=== PATIENT | female | born 1995 | race Caucasian/White ===

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

== ENCOUNTER 2017-02-25 17:15 | Emergency (ER) | payer OTHER ==
[2017-02-25 17:19] VITALS: BP 138/93; PULSE 93; TEMP 98.4; BMI 32.0
[2017-02-25] MEDS ORDERED: KETOROLAC TROMETHAMINE 60 MG/2 ML VIAL IM ONE (18:03)
[2017-02-25] MEDS ORDERED: KETOROLAC TROMETHAMINE 60 MG/2 ML VIAL ONE (18:06)
--- NOTE | 2017-02-25 18:12 | PDOC ---
History of Present Illness - General Chief Complaint: Pain, Acute Stated Complaint: ARM PAIN Time Seen by Provider: 02/25/17 17:58 History Source: Patient Exam Limitations: No Limitations - History of Present Illness Initial Comments: 02/25/17 18:06 21 yr female asthma, anxiety history c/o 2 weeks pain in right shoulder upper arm and tremors in right hand when holding something heavy. Pt denies trauma. Pt has no fever or chills no shortness of breath or chest pain no headache. pt denies drug, ETOH or tobacco use. 02/25/17 18:08 Occurred: reports: other (2 weeks ) Method of Injury: reports: unknown Past History - Past Medical History Allergies/Adverse Reactions: Allergies Allergy/AdvReac Type Severity Reaction Status Date / Time mushroom Allergy Verified 02/25/17 17:18 Home Medications: Ambulatory Orders Albuterol Sulfate Inhaler - [Ventolin HFA Inhaler -] 1 - 2 inh PO Q4H PRN #1 inhaler 10/28/16 Cyclobenzaprine HCl [Flexeril 10 mg] 5 mg PO TID PRN #12 tablet 02/25/17 Naproxen [Naprosyn -] 500 mg PO BID PRN #14 tablet 02/25/17 Asthma: Yes Psychiatric Problems: Yes (anxeity) - Immunization History Immunization Up to Date: Yes - Psycho/Social/Smoking Cessation Hx Anxiety: No Suicidal Ideation: No Smoking Status: No Smoking History: Unknown if ever smoked Have you smoked in the past 12 months: No Number of Cigarettes Smoked Daily: 0 Hx Alcohol Use: No Drug/Substance Use Hx: No Substance Use Type: None Review of Systems - Review of Systems Able to Perform ROS?: Yes Is the patient limited Urdu proficient: No Constitutional: No: Symptoms Reported HEENTM: No: Symptoms Reported Respiratory: No: Symptoms reported Cardiac (ROS): No: Symptoms Reported ABD/GI: No: Symptoms Reported : No: Symptoms Reported Musculoskeletal: Yes: See HPI *Physical Exam - Vital Signs Last Vital Signs Temp Pulse Resp BP Pulse Ox 98.4 F 93 H 18 138/93 99 02/25/17 17:18 02/25/17 17:18 02/25/17 17:18 02/25/17 17:18 02/25/17 17:18 - Physical Exam General Appearance: Yes: Nourished, Appropriately Dressed HEENT: positive: EOMI, CARMEN, Normal ENT Inspection, TMs Normal, Pharynx Normal Neck: positive: Supple. negative: Tender Respiratory/Chest: positive: Lungs Clear, Normal Breath Sounds Cardiovascular: positive: Regular Rhythm, Regular Rate Musculoskeletal: positive: Normal Inspection Extremity: positive: Normal Capillary Refill, Tender (right upper arm muscle tender, no bony tenderness, nv intact ) Integumentary: positive: Normal Color, Dry, Warm Neurologic: positive: Fully Oriented, Alert, Normal Mood/Affect, Normal Response , Motor Strength 5/5. negative: Numbness, Sensory Deficit ED Treatment Course - RADIOLOGY Radiology Studies Ordered: Category Date Time Status HUMERUS-RIGHT [RAD] Stat Radiology 02/25/17 18:03 Ordered SHOULDER-RIGHT [RAD] Stat Radiology 02/25/17 18:03 Ordered Medical Decision Making - Medical Decision Making 02/25/17 18:10 cc: right upper arm, shoulder pain, tremors right hand when lifting or holding something. pt admits to frequent texting is right hand dominant pt with full range of motion of the arm, no tremors on exam will give toradol xray to r/o bony abnormality *DC/Admit/Observation/Transfer Diagnosis at time of Disposition: Arm pain Qualifiers: Laterality: right Qualified Code(s): M79.601 - Pain in right arm - Discharge Dispostion Disposition: HOME Condition at time of disposition: Good - Prescriptions Prescriptions: Cyclobenzaprine HCl [Flexeril 10 mg] 5 mg PO TID PRN #12 tablet PRN Reason: Muscle Spasms Naproxen [Naprosyn -] 500 mg PO BID PRN #14 tablet PRN Reason: Pain - Referrals Referrals: Armando Horowitz MD [Staff Physician] - - Patient Instructions Additional Instructions: USE THE SLING WHILE AWAKE REMOVE TO SLEEP AND BATHE call the orthopedist on Tuesday to make appointment for follow up take the naprosyn for pain and the flexeril for muscle spasm (tremors) avoid over use of your right hand. return to ER for if worse
== END 2017-02-25 18:49 | disposition home or self-care (01) ==
LOC: JERFT 17:15
PROC: 3E0233Z Introduction of Anti-inflammatory into Muscle, Percutaneous Approach (ICD-10-PCS; principal; 2017-02-25)
DX: M79.601 Pain in right arm (principal); J45.909 Unspecified asthma, uncomplicated; F41.9 Anxiety disorder, unspecified
CPT/HCPCS: 73030-TC-RT; 73060-TC-RT; 96372; 99281-25